=== PATIENT | male | born 1990 | race Caucasian/White ===

== ENCOUNTER 2021-08-19 20:03 | Emergency (ER) | payer MEDICAID ==
[~2021-08-19] VITALS: Ht 170.2 cm; Wt 98.0 kg
[2021-08-19] MEDS ORDERED: LORAZEPAM 1MG TABLET PO ONE (21:00)
[2021-08-19] MEDS: OLANZAPINE 10MG TABLET PO SCH (21:14)
[2021-08-19 21:20] LABS: BASOPHILS % 0.3 % (0.0-2.0); EOSINOPHILS % 1.4 % (0.0-5.0); HEMATOCRIT. 37.3 % (42.0-52.0); HEMOGLOBIN. 13.2 g/dL (14.0-18.0); LYMPHOCYTES % 54.5 % (20.0-50.0); MEAN CORPUSCULAR HEMOGLOBIN 29.3 pg (28.0-32.0); MEAN CORPUSCULAR VOLUME 82.6 fL (80.0-94.0); MEAN PLATELET VOLUME 7.5 fl (7.4-10.4); MONOCYTES % 7.4 % (2.0-8.0); NEUTROPHILS % 36.4 % (40.0-76.0); PLATELET 246 x1000/uL (130-400); RED BLOOD CELL COUNT 4.51 mill/uL (4.7-6.1); RED CELL DISTRIBUTION WIDTH 13.5 % (11.6-14.6)
[2021-08-19 21:21] LABS: CLARITY URINE CLEAR (CLEAR); COLOR URINE YELLOW (YELLOW); KETONES URINE NEGATIVE (NEGATIVE); LEUKOCYTE ESTERASE URINE NEGATIVE (NEGATIVE); NITRITE URINE NEGATIVE (NEGATIVE); OCCULT BLOOD URINE NEGATIVE (NEGATIVE); PH URINE 5.5 (4.5-8.0); PROTEIN URINE NEGATIVE (NEGATIVE); SPECIFIC GRAVITY URINE 1.019 (1.005-1.030); UROBILINOGEN URINE 0.2 E.U./dL (0.2-1.0)
[2021-08-19 21:26] LABS: CHLORIDE 109 mEq/L (98-107)
[2021-08-19 21:30] LABS: ETHANOL BLOOD 76 mg/dL
[2021-08-19 21:34] LABS: *AMPHETAMINES SCREEN URINE PRESUMTIVE POSITIVE (NEGATIVE); *BARBITURATES SCREEN URINE NEGATIVE (NEGATIVE); *COCAINE SCREEN URINE NEGATIVE (NEGATIVE); CANNABINOID URINE SCREEN NEGATIVE (NEGATIVE); METHADONE URINE SCREEN NEGATIVE (NEGATIVE); OPIATES URINE SCREEN NEGATIVE (NEGATIVE); PHENCYCLIDINE URINE SCREEN NEGATIVE (NEGATIVE)
[2021-08-19 21:35] LABS: *BENZODIAZEPINES SCREEN URINE NEGATIVE (NEGATIVE)
[2021-08-19] MEDS ORDERED: ONDANSETRON HCL 4MG/2ML INJ IV STA (22:49)
[2021-08-19] MEDS ORDERED: SODIUM CHLORIDE 0.9% 1,000 ML IV ONE (23:00)
[2021-08-19] MEDS ORDERED: LORAZEPAM 2MG/ML CPJ IV ONE (23:00)
[2021-08-20] MEDS ORDERED: SERTRALINE HCL 100MG TABLET PO SCH (09:00)
[2021-08-20] MEDS: OLANZAPINE 10MG TABLET PO SCH (09:49)
[2021-08-20] MEDS ORDERED: ALPRAZOLAM 0.25 MG TABLET PO PRN (12:00)
[2021-08-20] MEDS ORDERED: ALPRAZOLAM 0.5 MG TABLET PO PRN (12:22)
[2021-08-20 22:30] VITALS: BP 109/51
== END 2021-08-20 22:43 ==
LOC: ER 20:03
DX: F15.129 Other stimulant abuse with intoxication, unspecified (principal); F10.129 Alcohol abuse with intoxication, unspecified; F32.9 Major depressive disorder, single episode, unspecified; F41.9 Anxiety disorder, unspecified; F17.210 Nicotine dependence, cigarettes, uncomplicated; R45.851 Suicidal ideations; Y90.3 Blood alcohol level of 60-79 mg/100 ml; Z20.822 Contact with and (suspected) exposure to COVID-19; Z88.2 Allergy status to sulfonamides
CPT/HCPCS: 36415; 80053; 80305; 80307; 80320; 80329; 81003; 85025; 87426; 93005; 96361; 96374; 96375; 99285; C9803; J2060; J2405; J7030; U0003; U0005; G0480

== ENCOUNTER 2021-09-23 14:56 | Inpatient (IN) | payer MEDICAID, OTHER ==
[~2021-09-23] VITALS: Ht 172.7 cm; Wt 97.5 kg
[2021-09-23] MEDS ORDERED: LORAZEPAM 2MG/ML CPJ IV STA (15:55)
[2021-09-23] MEDS ORDERED: SODIUM CHLORIDE 0.9% 1,000 ML IV ONE ×3 (16:00→18:45)
[2021-09-23 16:23] LABS: BASOPHILS % 0.2 % (0.0-2.0); EOSINOPHILS % 0.1 % (0.0-5.0); HEMATOCRIT. 39.5 % (42.0-52.0); HEMOGLOBIN. 13.7 g/dL (14.0-18.0); LYMPHOCYTES % 14.4 % (20.0-50.0); MEAN CORPUSCULAR HEMOGLOBIN 29.1 pg (28.0-32.0); MEAN CORPUSCULAR VOLUME 83.9 fL (80.0-94.0); MEAN PLATELET VOLUME 8.3 fl (7.4-10.4); NEUTROPHILS % 80.3 % (40.0-76.0); PLATELET 234 x1000/uL (130-400); RED BLOOD CELL COUNT 4.72 mill/uL (4.7-6.1)
[2021-09-23 16:31] LABS: CHLORIDE 106 mEq/L (98-107)
[2021-09-23 16:36] LABS: ETHANOL BLOOD < 10 mg/dL
[2021-09-23 17:01] LABS: BG CARBOXYHEMOGLOBIN 0.8 % (0.5-1.5); BG DEOXYHEMOGLOBIN 5.2 % (0.0-5.0); BG FRACTION INSPIRED OXYGEN 28; BG HCO3 ACT 25.7 mmol/L (22.0-26.0); BG METHEMOGLOBIN 0.3 % (0.0-1.5); BG OXYGEN SATURATION 94.7 % (92.0-98.5); BG OXYHEMOGLOBIN 93.7 % (94.0-97.0); BG PCO2 41.5 mmHg (35.0-45.0); BG PO2 73.3 mmHg (75.0-100.0); BG SAMPLE SITE RIGHT BRACHIAL; BG TOTAL HEMOGLOBIN 14.2 g/dL (12.0-18.0); BG VENT MODE NASAL CANNULA
[2021-09-23] MEDS ORDERED: LORAZEPAM 2MG/ML CPJ IV ONE (18:00)
[2021-09-23 19:34] LABS: *AMPHETAMINES SCREEN URINE NEGATIVE (NEGATIVE); *BARBITURATES SCREEN URINE NEGATIVE (NEGATIVE); *BENZODIAZEPINES SCREEN URINE PRESUMTIVE POSITIVE (NEGATIVE); *COCAINE SCREEN URINE NEGATIVE (NEGATIVE); METHADONE URINE SCREEN NEGATIVE (NEGATIVE); OPIATES URINE SCREEN NEGATIVE (NEGATIVE); PHENCYCLIDINE URINE SCREEN NEGATIVE (NEGATIVE)
[2021-09-23 19:35] LABS: CANNABINOID URINE SCREEN NEGATIVE (NEGATIVE)
[2021-09-24 08:00] VITALS: BP 123/79
[2021-09-24 11:16] VITALS: BP 123/79
[2021-09-24] MEDS ORDERED: QUET300T2 MT (11:39)
[2021-09-24] MEDS ORDERED: BUPR1FIL3 SL (11:39)
[2021-09-24] MEDS ORDERED: SERT100T MT (11:39)
[2021-09-24] MEDS ORDERED: GABA-290 MT (11:39)
[2021-09-24 12:00] VITALS: BP 107/75
[2021-09-24] MEDS ORDERED: ENOXAPARIN 40MG/0.4ML SYR SUBCUT SCH (12:30)
[2021-09-24] MEDS ORDERED: CLONIDINE 0.1MG TABLET PO PRN (12:30)
[2021-09-24] MEDS ORDERED: LORAZEPAM 0.5MG TABLET PO PRN (12:30)
[2021-09-24] MEDS ORDERED: LACTULOSE 20G/30ML UDC PO NR (12:30)
[2021-09-24] MEDS ORDERED: ACETAMINOPHEN 325MG TABLET PO PRN (12:30)
[2021-09-24] MEDS ORDERED: IPRATROPIUM/ALBUTEROL 0.5-3(2.5)MG/3ML NEB HHN PRN (12:30)
[2021-09-24] MEDS ORDERED: DOCUSATE SODIUM 100MG CAPSULE PO PRN (12:30)
[2021-09-24] MEDS ORDERED: ONDANSETRON HCL 4MG/2ML INJ IV PRN (12:30)
[2021-09-24] MEDS ORDERED: MAGNESIUM/ALUMINUM HYDROXIDE/SIMETHICONE 30ML UDC PO PRN (12:30)
[2021-09-24] MEDS: SODIUM CHLORIDE 0.9% 1,000 ML IV SCH ×2 (13:00→23:00)
[2021-09-24] MEDS ORDERED: NALOXONE HCL 0.4MG/ML VIAL IV PRN (13:00)
[2021-09-24] MEDS: GABAPENTIN 300MG CAPSULE PO SCH ×2 (15:36→21:37)
[2021-09-24] MEDS: NICOTINE 21MG PATCH TD SCH (15:36)
[2021-09-24] MEDS: ENOXAPARIN 30MG/0.3ML SYR SUBCUT SCH ×2 (15:37→21:36)
[2021-09-24 16:00] VITALS: BP 114/78
[2021-09-24 20:00] VITALS: BP 113/84
[2021-09-24] MEDS: CHLORDIAZEPOXIDE 5 MG CAPSULE PO SCH (21:37)
[2021-09-24] MEDS: CHLORDIAZEPOXIDE 10MG CAPSULE PO SCH (21:37)
[2021-09-24] MEDS: HYDROCODONE/ACETAMINOPHEN 5/325MG TABLET PO PRN (21:38)
[2021-09-25] VITALS: BP 118/78
[2021-09-25 04:00] VITALS: BP 116/83
[2021-09-25] MEDS: CHLORDIAZEPOXIDE 10MG CAPSULE PO SCH ×2 (05:57→13:06)
[2021-09-25] MEDS: CHLORDIAZEPOXIDE 5 MG CAPSULE PO SCH ×2 (05:57→13:06)
[2021-09-25] MEDS: HYDROCODONE/ACETAMINOPHEN 5/325MG TABLET PO PRN ×2 (05:58→10:30)
[2021-09-25] MEDS: GABAPENTIN 300MG CAPSULE PO SCH ×2 (05:59→13:06)
[2021-09-25] MEDS ORDERED: OMEPRAZOLE 20MG CAPSULE EXTENDED RELEASE PO SCH (07:10)
[2021-09-25 08:00] VITALS: BP 102/67
[2021-09-25] MEDS: NICOTINE 21MG PATCH TD SCH (09:01)
[2021-09-25] MEDS: ENOXAPARIN 30MG/0.3ML SYR SUBCUT SCH (09:02)
[2021-09-25] MEDS: SODIUM CHLORIDE 0.9% 1,000 ML IV SCH (09:02)
[2021-09-25] MEDS ORDERED: SERTRALINE HCL 100MG TABLET PO SCH (09:30)
[2021-09-25] MEDS ORDERED: RISPERIDONE 1MG TABLET PO SCH (09:30)
[2021-09-25] MEDS ORDERED: VENLAFAXINE HCL 37.5MG TABLET PO SCH (10:00)
[2021-09-25 10:58] LABS: BASOPHILS % 0.4 % (0.0-2.0); EOSINOPHILS % 0.5 % (0.0-5.0); HEMATOCRIT. 42.7 % (42.0-52.0); HEMOGLOBIN. 14.9 g/dL (14.0-18.0); MEAN CORPUSCULAR HEMOGLOBIN 29.3 pg (28.0-32.0); MEAN CORPUSCULAR VOLUME 83.9 fL (80.0-94.0); MEAN PLATELET VOLUME 8.4 fl (7.4-10.4); MONOCYTES % 7.1 % (2.0-8.0); PLATELET 240 x1000/uL (130-400); RED BLOOD CELL COUNT 5.08 mill/uL (4.7-6.1); RED CELL DISTRIBUTION WIDTH 13.5 % (11.6-14.6)
[2021-09-25 11:14] LABS: CHLORIDE 107 mEq/L (98-107)
[2021-09-25 11:22] LABS: PHOSPHORUS 3.6 mg/dL (2.5-4.9)
[2021-09-25 12:00] VITALS: BP 119/86
[2021-09-25 12:56] VITALS: BP 119/86
[2021-09-25] MEDS ORDERED: QUETIAPINE FUMARATE 50MG TABLET PO SCH (21:00)
== END 2021-09-25 15:30 | DRG 817 ==
LOC: ER 14:56 → MICUSO 19:05 → EDBEDREQ 19:07 → EDBEDREQTM 19:07 → 8WST 09-24 07:17
PROVIDERS: ADMIT Internal Medicine; ATTEND Internal Medicine
DX: T50.902A Poisoning by unspecified drugs, medicaments and biological substances, intentional self-harm, initial encounter (principal); E87.2 Acidosis; E72.20 Disorder of urea cycle metabolism, unspecified; F25.1 Schizoaffective disorder, depressive type; F41.9 Anxiety disorder, unspecified; Z20.822 Contact with and (suspected) exposure to COVID-19; F15.10 Other stimulant abuse, uncomplicated; Z79.899 Other long term (current) drug therapy; Z88.2 Allergy status to sulfonamides; Z88.8 Allergy status to other drugs, medicaments and biological substances; Y92.89 Other specified places as the place of occurrence of the external cause
CPT/HCPCS: 36415; 36600; 71045; 76700; 80048; 80053; 80076; 80305; 80320; 80329; 82140; 82375; 82550; 82805; 83605; 83735; 84100; 84443; 85025; 87426; 93005; 93970; 99291; J1650; J2060; J7030; G0480